=== PATIENT | female | born 1990 | race Two or more races ===

== ENCOUNTER 2017-02-12 08:51 | Emergency (ER) | payer MEDICAID ==
[~2017-02-12] VITALS: Ht 160 cm; Wt 76.0 kg
[2017-02-12 09:30] VITALS: BP 100/49
[2017-02-12] MEDS ORDERED: SODIUM CHLORIDE 0.9% 1,000 ML IV ONE (09:39)
[2017-02-12] MEDS ORDERED: ONDANSETRON HCL 4MG/2ML VIAL IV STA (09:39)
[2017-02-12 10:04] LABS: BASOPHILS % 0.2 % (0.0-2.0); EOSINOPHILS % 0.1 % (0.0-5.0); HEMATOCRIT. 34.7 % (36.0-48.0); HEMOGLOBIN. 11.7 g/dL (12.0-16.0); LYMPHOCYTES % 7.8 % (20.0-50.0); MEAN CORPUSCULAR HEMOGLOBIN 27.9 pg (28.0-32.0); MEAN CORPUSCULAR VOLUME 82.7 fL (81.0-99.0); MEAN PLATELET VOLUME 8.7 fl (7.4-10.4); MONOCYTES % 5.4 % (2.0-8.0); NEUTROPHILS % 86.5 % (40.0-76.0); PLATELET 236 x1000/uL (130-400); RED BLOOD CELL COUNT 4.19 mill/uL (4.2-5.4); RED CELL DISTRIBUTION WIDTH 13.9 % (11.6-14.6)
[2017-02-12 10:09] LABS: CHLORIDE 103 mEq/L (98-107)
[2017-02-12 10:10] LABS: INR 1.2; PROTHROMBIN TIME 12.3 sec (9.4-11.6)
[2017-02-12 10:16] LABS: CARBON DIOXIDE 26 mEq/L (21-32)
[2017-02-12 11:33] LABS: HCG SCREEN NEGATIVE
[2017-02-12 13:11] LABS: CLARITY URINE CLEAR (CLEAR); COLOR URINE YELLOW (YELLOW); GLUCOSE URINE NEGATIVE (NEGATIVE); KETONES URINE 1+ (NEGATIVE); LEUKOCYTE ESTERASE URINE NEGATIVE (NEGATIVE); NITRITE URINE NEGATIVE (NEGATIVE); OCCULT BLOOD URINE NEGATIVE (NEGATIVE); PH URINE 5.5 (4.5-8.0); PROTEIN URINE NEGATIVE (NEGATIVE); UROBILINOGEN URINE 0.2 E.U./dL (0.2-1.0)
[2017-02-12] MEDS ORDERED: ACETAMINOPHEN 325MG TABLET PO ONE (13:45)
== END 2017-02-12 13:49 | disposition home or self-care (01) ==
LOC: ER 08:51
DX: A08.4 Viral intestinal infection, unspecified (principal); Z98.890 Other specified postprocedural states
CPT/HCPCS: 36415; 80053; 81003; 83690; 84703; 85025; 85610; 96361; 96374; 99285; J2405; J7030; Z7610

== ENCOUNTER 2017-02-25 15:13 | Emergency (ER) | payer MEDICAID ==
[~2017-02-25] VITALS: Ht 165.1 cm; Wt 76.0 kg
[2017-02-25] MEDS ORDERED: SODIUM CHLORIDE 0.9% 1,000 ML IV ONE (22:19)
[2017-02-25] MEDS ORDERED: ONDANSETRON HCL 4MG/2ML VIAL IV ONE (22:30)
[2017-02-25] MEDS ORDERED: ACETAMINOPHEN 500MG TABLET PO ONE (22:30)
[2017-02-26 00:42] LABS: CLARITY URINE CLOUDY (CLEAR); COLOR URINE YELLOW (YELLOW); GLUCOSE URINE NEGATIVE (NEGATIVE); KETONES URINE NEGATIVE (NEGATIVE); LEUKOCYTE ESTERASE URINE NEGATIVE (NEGATIVE); NITRITE URINE NEGATIVE (NEGATIVE); OCCULT BLOOD URINE NEGATIVE (NEGATIVE); PH URINE 7.5 (4.5-8.0); PROTEIN URINE NEGATIVE (NEGATIVE); SPECIFIC GRAVITY URINE 1.022 (1.005-1.030); UROBILINOGEN URINE 0.2 E.U./dL (0.2-1.0)
[2017-02-26 01:33] VITALS: BP 87/49
== END 2017-02-26 01:54 | disposition home or self-care (01) ==
LOC: ER 15:14
DX: K29.00 Acute gastritis without bleeding (principal); N39.0 Urinary tract infection, site not specified; N64.4 Mastodynia; R11.10 Vomiting, unspecified
CPT/HCPCS: 81001; 81025; 96361; 96374; 99284; J2405; J7030; Z7610

== ENCOUNTER 2017-08-15 02:11 | Emergency (ER) | payer MEDICAID, OTHER ==
[~2017-08-15] VITALS: Ht 162.6 cm; Wt 85.0 kg
[2017-08-15] MEDS ORDERED: ALBUTEROL (0.083%) 2.5MG/3ML NEB HHN STA (03:12)
[2017-08-15] MEDS ORDERED: IPRATROPIUM BROMIDE (0.02%) 0.5MG/2.5ML NEB HHN STA (03:12)
[2017-08-15 04:09] LABS: CHLORIDE 106 mEq/L (98-107)
[2017-08-15 04:17] LABS: BASOPHILS % 0.7 % (0.0-2.0); EOSINOPHILS % 2.2 % (0.0-5.0); HEMATOCRIT. 33.8 % (36.0-48.0); HEMOGLOBIN. 11.6 g/dL (12.0-16.0); LYMPHOCYTES % 32.3 % (20.0-50.0); MEAN CORPUSCULAR HEMOGLOBIN 28.8 pg (28.0-32.0); MEAN CORPUSCULAR VOLUME 83.7 fL (81.0-99.0); MEAN PLATELET VOLUME 8.9 fl (7.4-10.4); MONOCYTES % 8.1 % (2.0-8.0); NEUTROPHILS % 56.7 % (40.0-76.0); PLATELET 241 x1000/uL (130-400); RED BLOOD CELL COUNT 4.04 mill/uL (4.2-5.4); RED CELL DISTRIBUTION WIDTH 13.7 % (11.6-14.6)
[2017-08-15 04:21] LABS: INR 1.1; PROTHROMBIN TIME 10.9 sec (9.4-11.6)
[2017-08-15] MEDS ORDERED: PREDNISONE 20MG TABLET PO ONE (04:30)
[2017-08-15 06:43] LABS: CLARITY URINE CLEAR (CLEAR); COLOR URINE YELLOW (YELLOW); KETONES URINE NEGATIVE (NEGATIVE); LEUKOCYTE ESTERASE URINE NEGATIVE (NEGATIVE); NITRITE URINE NEGATIVE (NEGATIVE); OCCULT BLOOD URINE NEGATIVE (NEGATIVE); PROTEIN URINE NEGATIVE (NEGATIVE); SPECIFIC GRAVITY URINE 1.009 (1.005-1.030); UROBILINOGEN URINE 0.2 E.U./dL (0.2-1.0)
[2017-08-15 06:45] VITALS: BP 103/51
== END 2017-08-15 07:19 | disposition home or self-care (01) ==
LOC: ER 02:11
DX: O26.891 Other specified pregnancy related conditions, first trimester (principal); J45.901 Unspecified asthma with (acute) exacerbation; R10.9 Unspecified abdominal pain; R00.0 Tachycardia, unspecified; Z3A.01 Less than 8 weeks gestation of pregnancy; Z98.890 Other specified postprocedural states
CPT/HCPCS: 36415; 76801; 76817; 80053; 81003; 83690; 85025; 85610; 87086; 94640; 99285; J7512; J7611

== ENCOUNTER 2017-09-11 02:06 | Emergency (ER) | payer OTHER ==
[~2017-09-11] VITALS: Ht 162.6 cm; Wt 104.0 kg
[2017-09-11] MEDS ORDERED: SODIUM CHLORIDE 0.9% 1,000 ML IV ONE (03:09)
[2017-09-11] MEDS ORDERED: ACETAMINOPHEN 325MG TABLET PO ONE (03:15)
[2017-09-11 03:27] LABS: BASOPHILS % 0.4 % (0.0-2.0); EOSINOPHILS % 2.1 % (0.0-5.0); HEMATOCRIT. 37.5 % (36.0-48.0); HEMOGLOBIN. 13.1 g/dL (12.0-16.0); MEAN CORPUSCULAR HEMOGLOBIN 28.9 pg (28.0-32.0); MEAN CORPUSCULAR VOLUME 82.8 fL (81.0-99.0); MEAN PLATELET VOLUME 8.5 fl (7.4-10.4); MONOCYTES % 6.2 % (2.0-8.0); NEUTROPHILS % 67.3 % (40.0-76.0); PLATELET 255 x1000/uL (130-400); RED BLOOD CELL COUNT 4.53 mill/uL (4.2-5.4); RED CELL DISTRIBUTION WIDTH 14.2 % (11.6-14.6)
[2017-09-11 03:35] LABS: PROTHROMBIN TIME 10.5 sec (9.4-11.6)
[2017-09-11 03:48] LABS: CHLORIDE 105 mEq/L (98-107)
[2017-09-11 04:09] LABS: B-HCG QUANTITATIVE 41183 mIU/mL (<3)
[2017-09-11 06:06] VITALS: BP 106/57
== END 2017-09-11 06:25 | disposition home or self-care (01) ==
LOC: ER 02:06
DX: O26.891 Other specified pregnancy related conditions, first trimester (principal); R51 Headache; R10.9 Unspecified abdominal pain; N89.8 Other specified noninflammatory disorders of vagina; O99.511 Diseases of the respiratory system complicating pregnancy, first trimester; J45.909 Unspecified asthma, uncomplicated; Z3A.11 11 weeks gestation of pregnancy
CPT/HCPCS: 36415; 76801; 76817; 80053; 84702; 85025; 85610; 99285; J7030; Z7610

== ENCOUNTER 2021-07-05 23:05 | Emergency (ER) | payer OTHER ==
[~2021-07-05] VITALS: Ht 162.6 cm; Wt 109.0 kg
[2021-07-06] MEDS ORDERED: IBUP-2030 MT (01:54)
[2021-07-06] MEDS ORDERED: SULF-13 MT (01:54)
[2021-07-06] MEDS ORDERED: CEPH500T MT (01:54)
[2021-07-06 02:48] VITALS: BP 131/67
== END 2021-07-06 02:49 | disposition home or self-care (01) ==
LOC: ER 23:05
DX: L03.211 Cellulitis of face (principal); J45.909 Unspecified asthma, uncomplicated; Z98.890 Other specified postprocedural states
CPT/HCPCS: 99281